=== PATIENT | male | born 1950 | race Two or more races ===

== ENCOUNTER 2020-03-25 08:01 | Inpatient (IN) | payer MEDICARE ==
[~2020-03-25] VITALS: Ht 182.9 cm; Wt 90.7 kg
[2020-03-25] MEDS ORDERED: SODIUM CHLORIDE 0.9% 1,000 ML IV ONE (08:59)
[2020-03-25 09:18] LABS: BASOPHILS % 0.1 % (0.0-2.0); EOSINOPHILS % 0.7 % (0.0-5.0); LYMPHOCYTES % 13.2 % (20.0-50.0); MEAN CORPUSCULAR HEMOGLOBIN 31.2 pg (28.0-32.0); MEAN CORPUSCULAR VOLUME 93.1 fL (80.0-94.0); PLATELET 145 x1000/uL (130-400); RED BLOOD CELL COUNT 3.54 mill/uL (4.7-6.1); RED CELL DISTRIBUTION WIDTH 13.8 % (11.6-14.6)
[2020-03-25 09:19] LABS: CHLORIDE 92 mEq/L (98-107)
[2020-03-25 09:23] LABS: ETHANOL BLOOD < 10 mg/dL
[2020-03-25] MEDS ORDERED: SODIUM CHLORIDE 0.9% 1000ML BAG (SEPSIS BOLUS) IV ONE (09:30)
[2020-03-25] MEDS ORDERED: CEFTRIAXONE 1 G PREMIX 50 ML IV ONE (09:30)
[2020-03-25] MEDS ORDERED: NOREPINEPHRINE 4MG/250ML PMX 250 ML IV ONE (10:30)
[2020-03-25] MEDS: SODIUM CHLORIDE 0.9% 1,000 ML IV SCH ×2 (12:15→21:58)
[2020-03-25] MEDS ORDERED: DEXTROSE 50% WATER 50ML SYRINGE IV PRN (12:15)
[2020-03-25] MEDS ORDERED: LORAZEPAM 2MG/ML CPJ IV PRN (12:15)
[2020-03-25] MEDS ORDERED: ACETAMINOPHEN 325MG TABLET PO PRN (12:15)
[2020-03-25] MEDS ORDERED: ONDANSETRON HCL 4MG/2ML INJ IV PRN (12:15)
[2020-03-25] MEDS ORDERED: PIPERACILLIN/TAZ 3.375G PREMIX 50 ML IV ONE (12:30)
[2020-03-25] MEDS: BLOOD SUGAR DIAGNOSTIC STRIP TEST SCH ×3 (13:00→21:00)
[2020-03-25] MEDS ORDERED: MIDODRINE HCL 5MG TABLET PO SCH (13:00)
[2020-03-25 13:08] LABS: CLARITY URINE CLEAR (CLEAR); COLOR URINE YELLOW (YELLOW); KETONES URINE NEGATIVE (NEGATIVE); LEUKOCYTE ESTERASE URINE NEGATIVE (NEGATIVE); NITRITE URINE NEGATIVE (NEGATIVE); OCCULT BLOOD URINE NEGATIVE (NEGATIVE); PROTEIN URINE NEGATIVE (NEGATIVE)
[2020-03-25 13:11] LABS: HEPATITIS B SURFACE ANTIGEN NEGATIVE
[2020-03-25] MEDS: INSULIN LISPRO 100 UNITS/ML SUBCUT SCH ×3 (13:20→21:00)
[2020-03-25 13:32] LABS: *AMPHETAMINES SCREEN URINE NEGATIVE (NEGATIVE); *BARBITURATES SCREEN URINE NEGATIVE (NEGATIVE); *BENZODIAZEPINES SCREEN URINE NEGATIVE (NEGATIVE); *COCAINE SCREEN URINE NEGATIVE (NEGATIVE)
[2020-03-25 13:33] LABS: CANNABINOID URINE SCREEN NEGATIVE (NEGATIVE); METHADONE URINE SCREEN NEGATIVE (NEGATIVE); OPIATES URINE SCREEN NEGATIVE (NEGATIVE); PHENCYCLIDINE URINE SCREEN NEGATIVE (NEGATIVE)
[2020-03-25 13:41] LABS: HEPATITIS A AB IGM NEGATIVE (NEGATIVE)
[2020-03-25] MEDS ORDERED: OCTREOTIDE 1,000 MCG in SODIUM CHLORIDE 0.9% 98 ML IV ONE ×4 (14:00)
[2020-03-25] MEDS ORDERED: PANTOPRAZOLE SODIUM 40 MG/VIAL IV NR (14:00)
[2020-03-25 15:17] LABS: HEMATOCRIT 28.6 % (42.0-52.0); HEMOGLOBIN 9.9 g/dL (14.0-18.0); MEAN CORPUSCULAR HEMOGLOBIN 31.2 pg (28.0-32.0); MEAN CORPUSCULAR VOLUME 89.9 fL (80.0-94.0); PLATELET 118 x1000/uL (130-400); RED BLOOD CELL COUNT 3.18 mill/uL (4.7-6.1); RED CELL DISTRIBUTION WIDTH 13.8 % (11.6-14.6)
[2020-03-25] MEDS ORDERED: POTASSIUM CHLORIDE 20MEQ TABLET SR PO NR (16:30)
[2020-03-25 18:51] LABS: HEMATOCRIT 26.1 % (42.0-52.0); HEMOGLOBIN 9.2 g/dL (14.0-18.0)
[2020-03-25] MEDS: PANTOPRAZOLE SODIUM 40 MG/VIAL IV SCH (21:58)
[2020-03-25] MEDS: CHLORDIAZEPOXIDE 25MG CAPSULE PO SCH (21:58)
[2020-03-25] MEDS ORDERED: INSULIN GLARGINE UD 100 UNITS/ML SYR SUBCUT SCH (22:00)
[2020-03-25] MEDS ORDERED: BENA40TA9 PO (22:18)
[2020-03-25] MEDS: PIPERACILLIN/TAZOBACTAM 3.375 G in DEXT 5% WATER 100 ML IV SCH (23:09)
[2020-03-25 23:37] VITALS: BP 106/42
[2020-03-26] VITALS: BP 102/51
[2020-03-26 00:45] LABS: HEMATOCRIT 24.1 % (42.0-52.0); HEMOGLOBIN 8.4 g/dL (14.0-18.0)
[2020-03-26] MEDS: PIPERACILLIN/TAZOBACTAM 3.375 G in DEXT 5% WATER 100 ML IV SCH ×4 (03:29→21:47)
[2020-03-26 04:00] VITALS: BP 104/39
[2020-03-26] MEDS: CHLORDIAZEPOXIDE 25MG CAPSULE PO SCH ×3 (05:24→21:48)
[2020-03-26] MEDS: BLOOD SUGAR DIAGNOSTIC STRIP TEST SCH ×4 (05:45→21:25)
[2020-03-26] MEDS: INSULIN LISPRO 100 UNITS/ML SUBCUT SCH ×4 (06:11→21:00)
[2020-03-26 06:40] LABS: BASOPHILS % 0.1 % (0.0-2.0); EOSINOPHILS % 0.7 % (0.0-5.0); HEMATOCRIT. 23.4 % (42.0-52.0); HEMOGLOBIN. 8.1 g/dL (14.0-18.0); LYMPHOCYTES % 14.5 % (20.0-50.0); MEAN CORPUSCULAR HEMOGLOBIN 30.7 pg (28.0-32.0); MEAN CORPUSCULAR VOLUME 88.9 fL (80.0-94.0); MEAN PLATELET VOLUME 9.3 fl (7.4-10.4); MONOCYTES % 3.9 % (2.0-8.0); NEUTROPHILS % 80.8 % (40.0-76.0); PLATELET 107 x1000/uL (130-400); RED BLOOD CELL COUNT 2.63 mill/uL (4.7-6.1); RED CELL DISTRIBUTION WIDTH 14.1 % (11.6-14.6)
[2020-03-26 06:50] LABS: PHOSPHORUS 1.7 mg/dL (2.5-4.9)
[2020-03-26 08:00] VITALS: BP 106/63
[2020-03-26] MEDS: FOLIC ACID 1MG TABLET PO SCH (09:18)
[2020-03-26] MEDS: MULTIVITAMINS,THER W-MINERALS TABLET PO SCH (09:18)
[2020-03-26] MEDS: THIAMINE HCL 100MG TABLET PO SCH (09:18)
[2020-03-26] MEDS: PANTOPRAZOLE SODIUM 40 MG/VIAL IV SCH ×2 (09:19→16:04)
[2020-03-26] MEDS ORDERED: SODIUM PHOS,M-BASIC-D-BASIC 20 MM in DEXT 5% WATER 243.3333 ML IV SCH (10:00)
[2020-03-26 12:00] VITALS: BP 113/65
[2020-03-26] MEDS: INSULIN GLARGINE UD 100 UNITS/ML SYR SUBCUT SCH ×2 (12:30→21:49)
[2020-03-26 13:54] LABS: HEMATOCRIT 22.9 % (42.0-52.0)
[2020-03-26 16:00] VITALS: BP 93/55
[2020-03-26] MEDS: SODIUM CHLORIDE 0.9% 1,000 ML IV SCH (16:05)
[2020-03-26 18:16] LABS: HEMOGLOBIN 7.7 g/dL (14.0-18.0)
[2020-03-26 18:28] LABS: INR 1.1; PARTIAL THROMBOPLASTIN TIME 22.1 sec (23.4-31.0); PROTHROMBIN TIME 11.7 sec (9.6-11.0)
[2020-03-26 20:00] VITALS: BP 132/70
[2020-03-27] VITALS: BP 113/65
[2020-03-27 04:00] VITALS: BP 111/64
[2020-03-27] MEDS: PIPERACILLIN/TAZOBACTAM 3.375 G in DEXT 5% WATER 100 ML IV SCH ×4 (04:13→21:45)
[2020-03-27] MEDS: SODIUM CHLORIDE 0.9% 1,000 ML IV SCH ×2 (04:14→17:50)
[2020-03-27] MEDS: CHLORDIAZEPOXIDE 25MG CAPSULE PO SCH ×3 (05:29→21:44)
[2020-03-27 06:54] LABS: EOSINOPHILS % 6.4 % (0.0-5.0); HEMATOCRIT. 22.4 % (42.0-52.0); HEMOGLOBIN. 7.7 g/dL (14.0-18.0); LYMPHOCYTES % 29.5 % (20.0-50.0); MEAN CORPUSCULAR HEMOGLOBIN 31.4 pg (28.0-32.0); MEAN PLATELET VOLUME 9.2 fl (7.4-10.4); MONOCYTES % 5.9 % (2.0-8.0); NEUTROPHILS % 57.2 % (40.0-76.0); PLATELET 105 x1000/uL (130-400); RED BLOOD CELL COUNT 2.47 mill/uL (4.7-6.1)
[2020-03-27 07:02] LABS: CHLORIDE 109 mEq/L (98-107)
[2020-03-27] MEDS: INSULIN LISPRO 100 UNITS/ML SUBCUT SCH ×4 (07:50→21:44)
[2020-03-27] MEDS: BLOOD SUGAR DIAGNOSTIC STRIP TEST SCH ×4 (07:55→21:43)
[2020-03-27 08:00] VITALS: BP 128/76
[2020-03-27] MEDS: PANTOPRAZOLE SODIUM 40 MG/VIAL IV SCH ×2 (08:14→17:19)
[2020-03-27] MEDS: MULTIVITAMINS,THER W-MINERALS TABLET PO SCH (09:00)
[2020-03-27] MEDS: FOLIC ACID 1MG TABLET PO SCH (09:00)
[2020-03-27] MEDS: THIAMINE HCL 100MG TABLET PO SCH (09:00)
[2020-03-27] MEDS: INSULIN GLARGINE UD 100 UNITS/ML SYR SUBCUT SCH ×2 (10:00→21:39)
[2020-03-27] MEDS ORDERED: PROPOFOL 200MG/20ML VIAL IV ONE (11:09)
[2020-03-27] MEDS ORDERED: PHENYLEPHRINE HCL 10 MG/ML 1ML (IV VIAL) IV ONE (12:15)
[2020-03-27] MEDS ORDERED: SUCR1TAB30 PO (15:49)
[2020-03-27] MEDS ORDERED: OMEP40CA12 MT (15:49)
[2020-03-27] MEDS ORDERED: LANTUSUD SUBCUT (15:49)
[2020-03-27 16:00] VITALS: BP 111/68
[2020-03-27] MEDS: SUCRALFATE 1G TABLET PO SCH ×2 (17:18→21:44)
[2020-03-27 20:00] VITALS: BP 146/77
[2020-03-28] VITALS (11 sets, daily range): BP systolic 119–143; BP diastolic 53–91
[2020-03-28] MEDS: PIPERACILLIN/TAZOBACTAM 3.375 G in DEXT 5% WATER 100 ML IV SCH ×4 (05:15→22:25)
[2020-03-28 06:28] LABS: BASOPHILS % 0.8 % (0.0-2.0); EOSINOPHILS % 8.3 % (0.0-5.0); HEMOGLOBIN. 7.1 g/dL (14.0-18.0); LYMPHOCYTES % 27.3 % (20.0-50.0); MEAN CORPUSCULAR HEMOGLOBIN 32.1 pg (28.0-32.0); MEAN PLATELET VOLUME 9.2 fl (7.4-10.4); MONOCYTES % 5.6 % (2.0-8.0); PLATELET 100 x1000/uL (130-400); RED BLOOD CELL COUNT 2.22 mill/uL (4.7-6.1); RED CELL DISTRIBUTION WIDTH 13.8 % (11.6-14.6)
[2020-03-28 06:32] LABS: CHLORIDE 109 mEq/L (98-107)
[2020-03-28] MEDS: SODIUM CHLORIDE 0.9% 1,000 ML IV SCH ×2 (06:46→20:15)
[2020-03-28] MEDS: SUCRALFATE 1G TABLET PO SCH ×4 (06:52→22:13)
[2020-03-28] MEDS: CHLORDIAZEPOXIDE 25MG CAPSULE PO SCH ×3 (06:52→22:13)
[2020-03-28] MEDS: BLOOD SUGAR DIAGNOSTIC STRIP TEST SCH ×4 (06:52→21:00)
[2020-03-28] MEDS: INSULIN LISPRO 100 UNITS/ML SUBCUT SCH ×4 (06:55→21:00)
[2020-03-28 07:19] LABS: HEMATOCRIT. 19.9 % (42.0-52.0)
[2020-03-28] MEDS: MULTIVITAMINS,THER W-MINERALS TABLET PO SCH (09:14)
[2020-03-28] MEDS: FOLIC ACID 1MG TABLET PO SCH (09:14)
[2020-03-28] MEDS: THIAMINE HCL 100MG TABLET PO SCH (09:14)
[2020-03-28] MEDS: PANTOPRAZOLE SODIUM 40 MG/VIAL IV SCH ×2 (09:14→17:00)
[2020-03-28] MEDS: INSULIN GLARGINE UD 100 UNITS/ML SYR SUBCUT SCH ×2 (13:58→22:24)
[2020-03-28 23:26] LABS: BASOPHILS % 0.6 % (0.0-2.0); EOSINOPHILS % 9.9 % (0.0-5.0); HEMATOCRIT. 23.9 % (42.0-52.0); HEMOGLOBIN. 8.3 g/dL (14.0-18.0); LYMPHOCYTES % 27.3 % (20.0-50.0); MEAN CORPUSCULAR HEMOGLOBIN 31.5 pg (28.0-32.0); MEAN CORPUSCULAR VOLUME 90.2 fL (80.0-94.0); MEAN PLATELET VOLUME 8.9 fl (7.4-10.4); MONOCYTES % 6.7 % (2.0-8.0); NEUTROPHILS % 55.5 % (40.0-76.0); PLATELET 107 x1000/uL (130-400); PROTHROMBIN TIME 10.7 sec (9.6-11.0); RED BLOOD CELL COUNT 2.65 mill/uL (4.7-6.1); RED CELL DISTRIBUTION WIDTH 14.1 % (11.6-14.6)
[2020-03-29 00:46] VITALS: BP 135/77
[2020-03-29 04:00] VITALS: BP 130/69
[2020-03-29] MEDS: CHLORDIAZEPOXIDE 25MG CAPSULE PO SCH (06:07)
[2020-03-29] MEDS: PIPERACILLIN/TAZOBACTAM 3.375 G in DEXT 5% WATER 100 ML IV SCH (06:07)
[2020-03-29] MEDS: SUCRALFATE 1G TABLET PO SCH (06:20)
[2020-03-29] MEDS: BLOOD SUGAR DIAGNOSTIC STRIP TEST SCH (06:20)
[2020-03-29] MEDS: INSULIN LISPRO 100 UNITS/ML SUBCUT SCH (07:50)
[2020-03-29 08:00] VITALS: BP 125/57
[2020-03-29] MEDS: THIAMINE HCL 100MG TABLET PO SCH (08:11)
[2020-03-29] MEDS: PANTOPRAZOLE SODIUM 40 MG/VIAL IV SCH (08:11)
[2020-03-29] MEDS: MULTIVITAMINS,THER W-MINERALS TABLET PO SCH (08:11)
[2020-03-29] MEDS: FOLIC ACID 1MG TABLET PO SCH (08:11)
[2020-03-29 09:36] VITALS: BP 125/57
[2020-03-29 12:00] VITALS: BP 150/70
== END 2020-03-29 11:42 | disposition home or self-care (01) | DRG 377 ==
LOC: ER 08:31 → EDBEDREQTM 12:30 → EDBEDREQ 12:30 → ENRESERV 20:17 → 6WST 21:18
PROVIDERS: ADMIT Internal Medicine; ATTEND Internal Medicine
PROC: 0DB68ZX Excision of Stomach, Via Natural or Artificial Opening Endoscopic, Diagnostic (ICD-10-PCS; principal; 2020-03-27)
PROC: 30233N1 Transfusion of Nonautologous Red Blood Cells into Peripheral Vein, Percutaneous Approach (ICD-10-PCS; 2020-03-28)
DX: K29.71 Gastritis, unspecified, with bleeding (principal); E43 Unspecified severe protein-calorie malnutrition; N17.0 Acute kidney failure with tubular necrosis; R57.1 Hypovolemic shock; F10.239 Alcohol dependence with withdrawal, unspecified; E87.1 Hypo-osmolality and hyponatremia; E87.2 Acidosis; K25.4 Chronic or unspecified gastric ulcer with hemorrhage; K29.81 Duodenitis with bleeding; D64.9 Anemia, unspecified; E11.65 Type 2 diabetes mellitus with hyperglycemia; E87.6 Hypokalemia; E87.8 Other disorders of electrolyte and fluid balance, not elsewhere classified; K76.0 Fatty (change of) liver, not elsewhere classified; K76.9 Liver disease, unspecified; G90.8 Other disorders of autonomic nervous system; K52.9 Noninfective gastroenteritis and colitis, unspecified; Z71.41 Alcohol abuse counseling and surveillance of alcoholic; Z68.27 Body mass index [BMI] 27.0-27.9, adult
CPT/HCPCS: 36415; 71045; 76705; 80048; 80053; 80076; 80305; 80320; 81003; 82140; 82248; 82728; 82962; 83036; 83540; 83550; 83605; 83735; 83880; 84100; 84484; 85014; 85018; 85025; 85027; 85384; 86705; 86709; 86803; 86850; 86900; 86920; 87340; 88305; 88312; 88313; 92610; 93005; 97161; 99291; C9113; J0696; J1815; J2354; J2370; J2405; J2543; J2704; J3490; J7030; J7050; J7060; P9016; G0480